=== PATIENT | female | born 1955 | race Caucasian/White ===

== ENCOUNTER 2016-08-05 09:20 | Inpatient (IN) | payer BC ==
[2016-07-28 14:56] VITALS: BMI 32.0
--- NOTE | 2016-07-28 15:21 | PAT Medication Instructions ---
Service Date July 28, 2016. 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 Instructions For Your Scheduled Surgery - Check with surgeon for instructions: Ibuprofen (Motrin), 600 MG PO TID - Hold the following medications starting 07/29/16: Anthony-3 Fatty Acids (Fish Oil), 1 TAB PO QAM Turmeric (Curcuma Longa) (Turmeric), 500 MG PO QAM - Hold the following medications 24 hours prior to surgery: [Voltaren Gel], 1 DOSE TOP BID PRN for RN - Hold the following medications the morning of surgery: Multivitamin (Multivitamin), 1 TAB PO QAM Cholecalciferol (Vitamin D3), 1 TAB PO QAM - Take the following medications the morning of surgery with a sip of water: Acetaminophen (Tylenol), 1,000 MG PO PRN (if needed) - Take the following medications as scheduled the night before surgery: Zolpidem Tartrate (Zolpidem Tartrate), 1 TAB PO HS Acetaminophen (Tylenol), 1,000 MG PO PRN (if needed) If you have any questions please call us at [phone] (Lexie Oneil PA-C ) or [phone] or [phone]
[2016-07-28 15:42] LABS: BASO % 0.5 %; BASO ABS # 0.03 K/uL (0-0.2); COMPLETE YES; EOS % 1.8 %; HEMATOCRIT 46.7 % (37-47); IG% 0.2 %; LYMPH % 24.9 %; MEAN CELL VOLUME 92.3 fL (80-100); MEAN CORPUSCULAR HEMOGLOBIN 31.4 pg (25-34); MEAN PLATELET VOLUME 10.1 fL (7.4-10.4); MONO % 7.8 %; NEUT % 64.8 %; PLATELET COUNT 216 K/uL (130-400); RED BLOOD COUNT 5.06 M/uL (4.2-5.4); WHITE BLOOD COUNT 5.62 K/uL (4.8-10.8)
[2016-07-28 15:49] LABS: URINE APPEARANCE CLEAR (CLEAR); URINE BILIRUBIN NEG (NEG); URINE COLOR YELLOW; URINE NITRITE NEG (NEG); UROBILINOGEN NEG (NEG)
[2016-07-28 15:52] LABS: MANUAL MICROSCOPIC REQUIRED? NO; REVIEW REQ? NO
[2016-07-28 15:58] LABS: PARTIAL THROMBOPLASTIN RATIO 1.1; PROTHROMBIN TIME (PATIENT) 10.5 SECONDS (9.0-12.0)
[2016-07-28 16:32] LABS: BUN/CREATININE RATIO 18.7 (10-20); CALCIUM 9.1 mg/dl (8.5-10.1); CREATININE 0.6 mg/dl (0.60-1.20); POTASSIUM 4.2 mmol/L (3.5-5.1)
[2016-07-29 07:19] LABS: ESTIMATED AVERAGE GLUCOSE 108 mg/dl; HA1C FLAG Normal (Normal)
--- NOTE | 2016-07-29 08:20 | History and Physical ---
History & Physical Date July 29, 2016. Chief Complaint Right Knee Pain History of Present Illness alex is a pleasant 61-year-old female who presents for preoperative evaluation prior to a right knee replacement. Patient states that they have been having pain in this knee for many years now, which has gradually worsened, it has now gotten to the point it is affecting her daily activities including walking, standing, going up and down steps. Patient has tried and failed conservative measures including previous cortisone injection and PO NSAIDs with no relief. At this point in time, patient has failed conservative measures and would like to proceed with a right knee replacement. Past Medical/Surgical History Past Medical History: denies history of HTN, diabetes, bleeding/clotting disorders Past Surgical History: Colecystectomy Hysterectomy Additional History Hepatic Disease: No Endocrine Disorder: No Kidney Disease: No Hypertension: No Heart Disease: No Bleeding Tendencies: No Infectious Diseases: No Allergies Coded Allergies: Penicillins (Verified Allergy, Unknown, HIVES, 07/28/16) Home Medications Scheduled Acetaminophen (Tylenol), 1,000 MG PO PRN Cholecalciferol (Vitamin D3), 1 TAB PO QAM Ibuprofen (Motrin), 600 MG PO TID Multivitamin (Multivitamin), 1 TAB PO QAM Garland-3 Fatty Acids (Fish Oil), 1 TAB PO QAM Turmeric (Curcuma Longa) (Turmeric), 500 MG PO QAM Zolpidem Tartrate (Zolpidem Tartrate), 1 TAB PO HS Scheduled PRN [Voltaren Gel], 1 DOSE TOP BID PRN for RN Physical Examination Skin: warm/dry, no rash Eyes: normal inspection, EOMI, sclerae normal ENT: normal ENT inspection, pharynx normal Head: normocephalic, atraumatic Neck: supple, no adenopathy, trachea midline Respiratory/Chest: lungs clear, normal breath sounds, no respiratory distress Cardiovascular: regular rate, rhythm, no edema, no murmur Abdomen / GI: normal bowel sounds, non tender Addiitonal Comments: Right Knee Examination: Strength LE * Strength Description - Knee: Right: strength is decreased. Knee ROM L * Active ROM - Flexion: 135 degrees, Extension: 0 degrees, Factors: normal, Description: active pain free range of motion. Passive ROM - Flexion: 135 degrees, Extension: 0 degrees, Factors: normal, Description: passive pain free range of motion. Knee ROM R * Active ROM - Flexion: 125 degrees, Extension: 5 degrees, Factors: pain, Description: active painful range of motion. Passive ROM - Flexion: 130 degrees, Extension: 3 degrees, Factors: pain, Description: passive painful range of motion. Strength LE Normal Strength Description - Hip: Right: strength is normal. Ankle/ Foot: Right: strength is normal. Knee * Inspection - Gait: limp. Alignment - Right: neutral, Left: neutral. Ecchymosis - Right: negative, Left: negative. Effusion - Right: mild, Left: normal. Swelling - Right: mild, Left: none. Flexibility - Right: normal, Left: normal. Maximum tenderness - Right: medial joint line, lateral joint line, patella, Left: normal. Patella exam - Crepitation - Right: mild, Left: normal. Patella position - Right: neutral, Left: neutral. Tilt - Right: equal, Left: normal. Joseluis's - lateral - Right: Positive. Joseluis's - medial - Right: Positive. Valgus stress - Right: Positive, trace (<2 mm). Varus stress - Right: Positive, trace (<2 mm). Knee Comments No calf tenderness Knee Normal Inspection - Atrophy - Right: Absent, Left: Absent. Skin - Right: Normal, Left: Normal. Patella exam - Apprehension - Right: Negative, Left: Negative. Q-angle - Right: Normal, Left: Normal. Jazmin's - Right: Negative, Left: Negative. Joseluis's - lateral - Left: Negative. [facility]'s - medial - Left: Negative. Posterior drawer - Right: Negative, Left: Negative. Anterior drawer - Right: Negative, Left: Negative. Valgus stress - Left: Negative. Varus stress - Left: Negative. Neurovascular LE Normal Neurovascular examination including reflexes, sensation , and pulses is within normal limits. RIGHT KNEE X-RAY Xrays reviewed of the right knee showing findings consistent with degenerative joint disease including joint space narrowing, subchondral sclerosis and peripheral osteophyte formation. no acute bony pathology, overall varus alignment. Impression: degenerative joint disease of the Right knee with no acute bony pathology noted. Diagnosis Right Knee DJD Further care discussed with patient and at this point in time has failed conservative measures and would like to proceed with a right total knee replacement. Plan on discharge will be home with outpatient physical therapy. DVT prophalaxis with TEDs, SCDs and will also place on aspirin 81 mg p.o. b.i.d. for a month postop. Patient will have follow up appointment in our office two weeks post op for staple/suture removal and re-evaluation. Patient otherwise has no other questions or concerns.
[2016-08-05] VITALS (8 sets, daily range): BP systolic 95–120; BP diastolic 63–85; PULSE 64–80; TEMP 36.4–37.1; O2SAT 93–98; Ht 167.6 cm; Wt 89.9 kg
[~2016-08-05] VITALS: Ht 167.6 cm; Wt 89.9 kg
[2016-08-05] MEDS: TRANEXAMIC ACID INJ 1,000 MG in SODIUM CHLORIDE 0.9% 100ML 100 ML IV SCH ×2 (06:30→11:30)
--- NOTE | 2016-08-05 06:56 | History & Physical Bridge Note ---
H&P Re-Evaluation Bridge Note: I have examined the patient, reviewed the History & Physical and in the interval since the performance of the History & Physical I have noted the following changes of clinical significance: No changes noted
[~2016-08-05 09:20] MED LIST: ACET-1256 PO; ACETAMINOPHEN 500 MG TAB PO SCH; ATROPINE SULFATE 0.1 MG/ML 5ML SYR IV PRN; BUPIVACAINE 0.25% 30 ML VIAL ONE; BUPIVACAINE 0.5 % 5 MG/1 ML PF 10ML VIAL ONE; CHOL1000 PO; CeleBREX 200 MG CAP PO SCH; DEXAMETHASONE 4 MG TAB PO SCH; EpHEDrine SULFATE INJ 50 MG/ML AMP IV PRN; FAMOTIDINE 20 MG TAB PO SCH; FENTANYL CITRATE INJ 50 MCG/1 ML 2 ML VIAL IV PRN; GABAPENTIN 300 MG CAP PO SCH; HYDROmorphone INJ 1 MG/ML SYR IV PRN; IBUP-1450 PO; LABETALOL HCL IV 5 MG/ML 20ML IV PRN; LACTATED RINGER'S 1000ML 1,000 ML IV SCH; LACTATED RINGER'S 1000ML IV SCH; LACTATED RINGER'S 500 ML IV SCH; MEPERIDINE HCL 25 MG/ML CARP IV PRN; METOCLOPRAMIDE HCL 10 MG TAB PO SCH; MULT-506 PO; OMEGCAP2 PO; ONDANSETRON INJ 2 MG/ML 2 ML VIAL IV PRN; ROPIVACAINE 5MG/ML 30 ML 150 MG, BUPIVACAINE/EPINEPHR 0.5% MPF 30 ML, KETOROLAC TROMETH... INFIL SCH; TURM1CAP4 PO; VANCOMYCIN INJ 1,350 MG in SODIUM CHLORIDE 0.9% 250ML 250 ML IV SCH; VOLTAREN GEL TOP; ZOLP5TAB6 PO
[2016-08-05] MEDS ORDERED: PROPOFOL IV EMULSION 10 MG/ML 20 ML VIAL IV ONE (10:21)
[2016-08-05] MEDS ORDERED: MIDAZOLAM HCL 1 MG/ML 2ML VIAL ONE (10:22)
[2016-08-05] MEDS ORDERED: FENTANYL CITRATE INJ 50 MCG/1 ML 2 ML VIAL ONE (10:22)
[2016-08-05] MEDS ORDERED: LIDOCAINE HCL 2% 2 ML VIAL (20MG/ML) ONE (10:26)
[2016-08-05] MEDS ORDERED: POVIDONE-IODINE OP SOLN 30 ML BTL ONE (11:15)
[2016-08-05] MEDS ORDERED: ORTHO JOINT ANESTHETIC ONE (11:15)
[2016-08-05] MEDS ORDERED: BACITRACIN 50000 UNIT VIAL ONE (11:17)
--- NOTE | 2016-08-05 12:42 | [facility] Post Operative Brief Note ---
Immediate Operative Summary Operative Date August 05, 2016. Pre-Operative Diagnosis Right Knee Degenerative Joint Disease Post-Operative Diagnosis Right Knee Degenerative Joint Disease Procedure(s) Performed Right Total Knee Arthroplasty Surgeon Dr. Cr [employer] Surgeon(s) Nas Degroot Estimated Blood Loss 5 ML Findings severe djd rt knee Specimens A: Right Knee bone and tissue Complication(s) None Disposition Recovery Room / PACU
[2016-08-05] MEDS ORDERED: MAGNESIUM HYDROXIDE SUSP 30 ML UDC PO PRN (12:45)
[2016-08-05] MEDS ORDERED: ONDANSETRON INJ 2 MG/ML 2 ML VIAL IV PRN (12:45)
[2016-08-05] MEDS ORDERED: ZOLPIDEM TARTRATE 5 MG TAB PO PRN (12:45)
[2016-08-05] MEDS ORDERED: METOCLOPRAMIDE HCL INJ 5 MG/ML 2 ML VIAL IV PRN (12:45)
[2016-08-05] MEDS ORDERED: ALUMINUM/MAGNESIUM/SIMETH (MAALOX MAX) 30 ML UDC PO PRN (12:45)
[2016-08-05] MEDS ORDERED: SOD PHOSPHATE/SOD BIPHOSPHATE ENEMA 132 ML BTL PR PRN (12:45)
[2016-08-05] MEDS ORDERED: DiphenhydrAMINE HCL 50 MG/ML VIAL IV PRN (12:45)
[2016-08-05] MEDS ORDERED: HYDROCODONE/ACETAMOPHEN 5/325MG TAB PO PRN (12:45)
[2016-08-05] MEDS ORDERED: BISACODYL 10 MG SUPP PR PRN (12:45)
--- NOTE | 2016-08-05 13:11 | OPERATIVE REPORT ---
DATE OF ADMISSION: 08/05/2016 PREOPERATIVE DIAGNOSIS: Severe end-stage tricompartmental degenerative joint disease, right knee. POSTOPERATIVE DIAGNOSIS: Severe end-stage tricompartmental degenerative joint disease, right knee. PROCEDURE: Right total knee arthroplasty utilizing Villafuerte \T\ Nephew Journey II patient matched total knee arthroplasty size 4 femur, 3 tibia, 11 poly, and 32 oval patella. SURGEON: Dr. Cr. POWDER CUTTING OPERATOR: Nas Bejarano PA-C who was necessary for prepping, draping, retraction, and wound closure of deep fascia, subQ and skin and was necessary for the case. . ESTIMATED BLOOD LOSS: 5 mL. COMPLICATIONS: None. TOURNIQUET TIME: 40 minutes. HISTORY OF PRESENT ILLNESS: The patient presents as a 61-year-old white female with complaints of severe end-stage DJD attributable to her right knee. She has been nonresponsive to conservative therapy and presents today for right total knee arthroplasty after failing attempts at injections, viscosupplementations, corticosteroid injections, anti-inflammatories, relative rest, and knee bracing. At the time of surgery, the above findings were noted. DESCRIPTION OF PROCEDURE: The patient was properly prepped and draped in supine position for total knee arthroplasty after identifying the appropriate surgical site. An anterior midline incision was made through the subcutaneous tissues down to the region of the extensor mechanism. A medial parapatellar incision was subsequently made. Meticulous hemostasis was obtained and performed at all times. The patella having been subluxed lateralward, medial and lateral meniscal remnants were excised. The patellar cut was then initially made and was sized to the appropriate size. After subluxing the tibia forward the appropriate meniscal fragments having been removed the distal femur was then cut first utilizing a Villafuerte and Nephew block. The distal femoral cuts and chamfer cuts were all made under direct visualization and the proximal tibial osteotomy cut was also made utilizing Villafuerte and Nephew blocks and checked with an extramedullary guide. The appropriate trial components on the femur and tibia were placed. Appropriate trial spacers were used to check flexion and extension gaps. With flexion and extension gaps being equal, the components were then subsequently after thorough irrigation and debridement lavage components were then subsequently cemented in the following order: femur, tibia and patella. Exparel was used for intraoperative anesthesia, the medial parapatellar incision was closed utilizing #1 Vicryl, subQ was closed with 2-0 Vicryl, skin was closed with skin clips. A sterile compression dressing was placed. The patient was taken to recovery room in stable condition. Due to the complex nature of the procedure, the entire surgery was performed with the operational assistance of Nas Bejarano PA-C. The certified physician assistant, under direct supervision, was involved in the actual performance of all aspects of the surgical procedure including hemostasis, tissue retraction and incision, instrument management, patient positioning, and wound closure.
[2016-08-05] MEDS ORDERED: MoRPHine SULFATE 2 MG/ML CARP IV PRN ×2 (13:30→15:45)
--- NOTE | 2016-08-05 13:54 | DIAGNOSTIC IMAGING REPORT ---
RIGHT KNEE 2 VIEWS History: Right total knee arthroplasty. Degenerative arthritis. Postop. FINDINGS: The patient is status post a right total knee arthroplasty. The hardware is intact. No fracture or dislocation. Surgical drains are in place. IMPRESSION: Right total knee arthroplasty. No evidence for hardware complication. Electronically signed by: Abundio Dash M.D. 08/05/2016 1:53 PM Dictated Date/Time: 08/05/2016 1:52 PM
[2016-08-05] MEDS ORDERED: MoRPHine SULFATE 10 MG/ML CARP/VIAL IV PRN (15:45)
--- NOTE | 2016-08-05 15:53 | Anesthesiology Progress Note ---
Anesthesia Post Op Note Date & Time August 05, 2016 at 15:53 Vital Signs Pain Intensity: 0.0 Vital Signs Past 12 Hours Date Time Temp Pulse Resp B/P Pulse Ox O2 Delivery O2 Flow Rate FiO2 08/05/16 15:15 36.6 64 18 119/85 96 Nasal Cannula 2.0 08/05/16 14:40 36.9 69 18 95/63 93 Nasal Cannula 2.0 08/05/16 14:40 93 Nasal Cannula 2.0 08/05/16 14:15 66 16 109/67 94 Nasal Cannula 2 08/05/16 14:05 36.6 63 16 102/64 97 Nasal Cannula 2 08/05/16 13:55 64 16 109/62 96 Nasal Cannula 2 08/05/16 13:45 70 16 106/62 97 Mask 6 08/05/16 13:35 68 16 105/65 97 Mask 6 08/05/16 13:26 36.6 75 16 108/66 98 Mask 6 08/05/16 09:54 36.7 67 20 98 Room Air Notes Mental Status: alert / awake / arousable, participated in evaluation Pt Amnestic to Procedure: Yes Nausea / Vomiting: adequately controlled Pain: adequately controlled Airway Patency, RR, SpO2: stable & adequate BP & HR: stable & adequate Hydration State: stable & adequate Neuraxial Anesthesia: was administered, sensory block is resolving Anesthetic Complications: no major complications apparent
[2016-08-05] MEDS: SODIUM CHLORIDE 0.9% 1000ML 1,000 ML IV SCH ×2 (16:10→22:46)
[2016-08-05] MEDS: ACETAMINOPHEN 500 MG TAB PO SCH ×2 (16:12→21:02)
[2016-08-05] MEDS ORDERED: TRANEXAMIC ACID INJ 1,000 MG in SODIUM CHLORIDE 0.9% 100ML 100 ML IV SCH (18:00)
[2016-08-05] MEDS: FERROUS GLUCONATE 324 MG TAB PO SCH (18:55)
[2016-08-05] MEDS: CLINDAMYCIN IV 600 MG in DEXTROSE 5% ADD-VANTAGE 50ML 50 ML IV SCH (18:56)
[2016-08-05] MEDS: OXYCODONE HCL 10 MG TABCR (OXYCONTIN) PO SCH (20:58)
[2016-08-05] MEDS: DOCUSATE SODIUM 100 MG CAP PO SCH (21:00)
[2016-08-05] MEDS: SENNA 8.6 MG TAB PO SCH (21:00)
[2016-08-05] MEDS: ASPIRIN 325 MG ECTAB PO SCH (21:01)
[2016-08-05] MEDS: MoRPHine SULFATE 4 MG/ML 1 ML CARP\\VIAL IV PRN (22:43)
[2016-08-06] VITALS (7 sets, daily range): BP systolic 102–120; BP diastolic 64–71; PULSE 63–78; TEMP 36.4–36.8; O2SAT 95–98
[2016-08-06] MEDS: CLINDAMYCIN IV 600 MG in DEXTROSE 5% ADD-VANTAGE 50ML 50 ML IV SCH (02:16)
[2016-08-06] MEDS: SODIUM CHLORIDE 0.9% 1000ML 1,000 ML IV SCH ×2 (02:17→09:12)
[2016-08-06] MEDS: ACETAMINOPHEN 500 MG TAB PO SCH ×3 (05:49→21:16)
[2016-08-06 06:16] LABS: HEMATOCRIT 37.4 % (37-47); MEAN CELL VOLUME 91.4 fL (80-100); MEAN CORPUSCULAR HEMOGLOBIN 31.3 pg (25-34); MEAN CORPUSCULAR HGB CONC 34.2 g/dl (32-36); MEAN PLATELET VOLUME 10.2 fL (7.4-10.4); PLATELET COUNT 210 K/uL (130-400); RED BLOOD COUNT 4.09 M/uL (4.2-5.4); WHITE BLOOD COUNT 13.01 K/uL (4.8-10.8)
[2016-08-06] MEDS: OXYCODONE HCL IR 5 MG TAB (IMMEDIATE RELEASE) PO PRN ×3 (07:46→16:06)
--- NOTE | 2016-08-06 08:10 | Anesthesiology Progress Note ---
Anesthesia Post Op Note Date & Time August 06, 2016 at 08:10 Vital Signs Pain Intensity: 5.0 Vital Signs Past 12 Hours Date Time Temp Pulse Resp B/P Pulse Ox O2 Delivery O2 Flow Rate FiO2 08/06/16 08:08 Room Air 08/06/16 07:36 36.6 63 16 102/64 95 Room Air 08/06/16 03:10 36.7 67 16 105/66 95 Room Air 08/06/16 00:05 36.7 66 16 112/70 95 Room Air 08/05/16 23:20 Room Air 08/05/16 20:40 36.4 66 18 110/72 96 Nasal Cannula 2.0 Notes Mental Status: alert / awake / arousable, participated in evaluation Pt Amnestic to Procedure: Yes Nausea / Vomiting: adequately controlled Pain: adequately controlled Airway Patency, RR, SpO2: stable & adequate BP & HR: stable & adequate Hydration State: stable & adequate Neuraxial Anesthesia: sensory block resolved Anesthetic Complications: no major complications apparent
[2016-08-06] MEDS: ASPIRIN 325 MG ECTAB PO SCH ×2 (09:10→21:14)
[2016-08-06] MEDS: FERROUS GLUCONATE 324 MG TAB PO SCH ×3 (09:10→18:27)
[2016-08-06] MEDS: OXYCODONE HCL 10 MG TABCR (OXYCONTIN) PO SCH ×2 (09:10→21:14)
[2016-08-06] MEDS: PANTOprazole SOD 40 MG TAB PO SCH (09:10)
[2016-08-06] MEDS: MULTIVITAMIN TAB PO SCH (09:11)
[2016-08-06] MEDS: DOCUSATE SODIUM 100 MG CAP PO SCH ×2 (09:11→21:14)
--- NOTE | 2016-08-06 10:36 | Orthopedic Progress Note ---
Orthopedic Progress Note Date of Service August 06, 2016. Subjective Post OP Day: 1 Reports: feeling well Objective N/V intact (Mild footdrop present), dressing C/D/I (hemovac in place) Date Time Temp Pulse Resp B/P Pulse Ox O2 Delivery O2 Flow Rate FiO2 08/06/16 08:08 95 Room Air 08/06/16 08:00 Room Air 08/06/16 07:36 36.6 63 16 102/64 95 Room Air 08/06/16 03:10 36.7 67 16 105/66 95 Room Air 08/06/16 00:05 36.7 66 16 112/70 95 Room Air 08/05/16 23:20 Room Air 08/05/16 20:40 36.4 66 18 110/72 96 Nasal Cannula 2.0 08/05/16 17:45 37.1 80 18 120/77 94 Nasal Cannula 2.0 08/05/16 16:45 36.6 65 18 107/68 95 Nasal Cannula 2.0 08/05/16 16:00 96 Nasal Cannula 2.0 08/05/16 15:45 36.4 65 16 111/72 96 Nasal Cannula 2.0 08/05/16 15:15 36.6 64 18 119/85 96 Nasal Cannula 2.0 08/05/16 14:40 36.9 69 18 95/63 93 Nasal Cannula 2.0 08/05/16 14:40 93 Nasal Cannula 2.0 08/05/16 14:15 66 16 109/67 94 Nasal Cannula 2 08/05/16 14:05 36.6 63 16 102/64 97 Nasal Cannula 2 08/05/16 13:55 64 16 109/62 96 Nasal Cannula 2 08/05/16 13:45 70 16 106/62 97 Mask 6 08/05/16 13:35 68 16 105/65 97 Mask 6 08/05/16 13:26 36.6 75 16 108/66 98 Mask 6 Laboratory Results 24 Hours: Test 08/06/16 05:11 Hematocrit 37.4 % Hemoglobin 12.8 g/dL Assessment & Plan Assessment: 61 yo female stable POD #1 s/p right TKA Plan: 1. Med management 2. DVT prophylaxis- ASA, TEDs, SCDs 3. PT/OT 4. D/C planning- home w/ OPPT
--- NOTE | 2016-08-06 16:09 | Discharge Instructions ---
Discharge Instructions Date of Service August 06, 2016. Admission Reason for Admission: Right Knee Osteoarthritis Discharge Discharge Diagnosis / Problem: Right Knee Djd Discharge Goals Goal(s): Decrease discomfort, Improve function Activity Recommendations Activity Limitations: per Instructions/Follow-up section Weightbearing Status: Right weightbearing (as tolerated) . Instructions / Follow-Up Instructions / Follow-Up ACTIVITY RECOMMENDATIONS: SELF CARE INSTRUCTIONS AFTER TOTAL KNEE REPLACEMENT A. You may need to continue a physical therapy program after discharge from the hospital. There are several options available to you. Your doctor will assist you in selecting the best one for you. 1. An out-patient facility 2 to 3 times a week for therapy or home therapy. 2. Continue working on all exercises taught to you in the hospital. Your goals should be to increase bending of your knee to 90 degrees and beyond and to fully straighten your knee. B. You may progress at your own pace from walking with a walker or crutches to a cane; then to no assistive devices. C. Make walking a part of your daily routine. Be up as much as comfortable with rest periods throughout the day. Rest with leg elevation is very important. Use the ice wrap frequently for the first 3-4 weeks. D. There are no restrictions on activities. You may ride in a car, shop, participate in sticker hand and all social activities. E. Wear the long elastic stockings (CABRERA hose) 20 hours a day for 2 weeks after surgery. They can be removed several times a day for laundering and for a bath. F. You may shower, no tub baths until cleared by your doctor. SPECIAL CARE INSTRUCTIONS: VERY IMPORTANT TO READ AND REVIEW A. There are a few signs you need to watch for after you are home. Call [facility] if you notice any of the followin. Increased severe knee pain. Some pain is expected especially when you exercise. 2. Increased swelling in your leg or knee; pain or swelling of the calf muscle in either lower leg. 3. Any fluid drainage from the incision. 4. Shortness of breath or chest pain. B. Please call [facility] at if you have any concerns or questions about your operation or recovery. The doctor or his nurse will return your call promptly. C. You must take antibiotics before dental work, bladder, bowel or other surgery. Your doctor will provide you with a permanent care to carry describing this precaution. IMPORTANT: * REMEMBER TO TAKE ASPIRIN, 81 MG, TWICE DAILY FOR 4 WEEKS UNLESS OTHERWISE DIRECTED. THIS IS YOUR BLOOD THINNER. * HIGH RISK PATIENTS MAY BE PRESCRIBED A STRONGER BLOOD THINNER. THIS WILL BE PROVIDED AT DISCHARGE. * CALL IF INCREASED PAIN, REDNESS, DRAINAGE OR FEVER GREATER THAT 101. * WEAR CABRERA HOSE 20 HOURS PER DAY FOR 2 WEEKS. * DERMABOND Prineo- This is a mesh tape dressing that is covered with glue. It should remain in place until the incision is properly healed, usually 10-14 days. This dressing is designed to naturally slough off. You may trim the excess mesh tape as it peels off. Incision may be briefly wet in a shower. Dry immediately by blotting with a clean, dry towel. Do not bath or swim until instructed by your doctor. Do not scratch, rub, or pick at the dressing. Do not apply any topical ointments or lotions until dressing is completely removed and/or instructed by your doctor. There may be a small piece of suture material at one end of your incision. Do not pull or trim this. If it is bothersome or catching on clothing, you may cover it with a band-aid. . FOLLOW UP VISIT: If appointment is not already scheduled: Please call [facility] to make a follow-up appointment for 2 weeks after your surgery at . Current Hospital Diet Patient's current hospital diet: Regular Diet Discharge Diet Recommended Diet: Regular Diet Procedures Procedures Performed: Right Total Knee Arthroplasty Pending Studies Studies pending at discharge: no Laboratory Results Hemoglobin A1c Test 07/28/16 15:32 Range/Units Estimated Average Glucose 108 mg/dl Hemoglobin A1c 5.4 4.5-5.6 % Medical Emergencies . Who to Call and When: Medical Emergencies: If at any time you feel your situation is an emergency, please call 911 immediately. . Non-Emergent Contact Non-Emergency issues call your: Surgeon Call Non-Emergent contact if: temperature is above 101.5, your pain is not controlled, your pain is worsening, wound has increased drainage, wound has increased redness . "Provider Documentation" section prepared by Nas Bejarano. . VTE Core Measure Inpt VTE Proph given/why not?: Other Anticoagulation, T.E.D. Stockings, SCD's [place] Drug Monitoring Program Search Results: patient reviewed within database, no issues identified
[2016-08-06] MEDS: MoRPHine SULFATE 4 MG/ML 1 ML CARP\\VIAL IV PRN (18:30)
[2016-08-06] MEDS: SENNA 8.6 MG TAB PO SCH (21:44)
[2016-08-07] MEDS: OXYCODONE HCL IR 5 MG TAB (IMMEDIATE RELEASE) PO PRN ×2 (03:58→10:06)
[2016-08-07] MEDS: ACETAMINOPHEN 500 MG TAB PO SCH (05:54)
[2016-08-07] MEDS: MoRPHine SULFATE 4 MG/ML 1 ML CARP\\VIAL IV PRN (05:54)
[2016-08-07 06:42] VITALS: BP 147/82; PULSE 66; TEMP 36.8; O2SAT 93
[2016-08-07] MEDS: OXYCODONE HCL 10 MG TABCR (OXYCONTIN) PO SCH (07:26)
[2016-08-07] MEDS: PANTOprazole SOD 40 MG TAB PO SCH (07:26)
[2016-08-07] MEDS: MULTIVITAMIN TAB PO SCH (07:26)
[2016-08-07] MEDS: FERROUS GLUCONATE 324 MG TAB PO SCH (07:26)
[2016-08-07] MEDS: DOCUSATE SODIUM 100 MG CAP PO SCH (07:47)
[2016-08-07] MEDS: ASPIRIN 325 MG ECTAB PO SCH (07:47)
--- NOTE | 2016-08-07 08:23 | Orthopedic Progress Note ---
Orthopedic Progress Note Date of Service August 07, 2016. Subjective Post OP Day: 2 Reports: complaints (mild pain in the knee this AM), feeling well Additional Notes: Pt having more pain today but tolerating well. Hopeful for going home today. Objective calves soft nontender, N/V intact, dressing C/D/I, A&O x3, toes mobile Date Time Temp Pulse Resp B/P Pulse Ox O2 Delivery O2 Flow Rate FiO2 08/07/16 07:15 Room Air 08/07/16 06:42 36.8 66 16 147/82 93 Room Air 08/06/16 23:32 36.8 78 16 120/70 95 Room Air 08/06/16 19:20 Room Air 08/06/16 15:25 36.7 73 18 115/71 98 Room Air 08/06/16 12:23 36.4 75 16 104/64 97 Room Air 08/06/16 12:15 Room Air Assessment & Plan Assessment: 61 yo female stable POD #2 s/p right TKA Plan: Progressing in PT Plan for dc to home today if her pain control is maintained Inhouse Planning Pain Management: Oxycontin, Morphine, PO Tylenol, Oxy IR DVT Prophylaxis: Shiva SCDs, ASA Discharge Planning Discharge Planning: home with oppt Pain Management: Oxycontin, PO Tylenol, Oxy IR DVT Prophylaxis: TEDs, ASA Therapy: Physical Therapy
[2016-08-07] MEDS ORDERED: SNK PO (08:29)
[2016-08-07] MEDS ORDERED: ASPEC325 PO (08:29)
[2016-08-07] MEDS ORDERED: OXYSR10 PO (08:29)
[2016-08-07] MEDS ORDERED: ACET-1256 PO (08:29)
[2016-08-07] MEDS ORDERED: RXC5 PO (08:29)
[2016-08-07] MEDS ORDERED: ASPEC81 PO (08:35)
--- NOTE | 2016-08-07 08:48 | DISCHARGE SUMMARY ---
DATE OF DISCHARGE: 08/07/2016 DISCHARGE DIAGNOSIS: Degenerative joint disease, right knee. SECONDARY DISEASE: History of cholelithiasis in the past. CONSULTS: None. COMPLICATIONS: None. PROCEDURES: Right total knee arthroplasty performed by Dr. Cr on 08/05/2016. BRIEF HISTORY: As dictated in history and physical. HOSPITAL SUMMARY: The patient was admitted on the above-noted date and had the above-noted surgery performed which she tolerated well. On her first postoperative day, she was feeling well and had no complaints. Dressings were clean, dry and intact. Neurovascular showed a mild footdrop present, but otherwise she was remaining stable. Vital signs were stable. She was afebrile. Hemoglobin was 12.8 and she was started on physical therapy protocol and continued on DVT prophylaxis with plans to watch the footdrop. This was likely secondary to intraoperative injection during the procedure. By her second postoperative day, she was remaining stable. Hemoglobin was 12.8 and she was stating that she was having some more pain today compared to yesterday with the block starting to wear off but was still hoping to go home today. She had some tingling on top of her right foot, but she had good dorsiflexion and plantar flexion and the mild footdrop was wearing off, which was likely due to injection. Calves were soft and nontender. Dressings were clean and dry. Toes were mobile. She was progressing with physical therapy and plans were for her to be discharged to home on 08/07/2016. For further review, please see chart. LABORATORY AND X-RAY DATA: As per chart. DISCHARGE INSTRUCTIONS: The patient was discharged to home in satisfactory condition on 08/07/2016. DIET: Regular. ACTIVITY: Follow TK instruction sheets and special care instructions as noted and follow up with Dr. Cr in 2 weeks. The patient to call for appointment if one has not been made for you. DISCHARGE MEDICATIONS: Acetaminophen 1000 mg p.o. t.i.d. for 30 days, aspirin 81 mg p.o. b.i.d. for 30 days, OxyContin 10 mg p.o. q. 12 hours, oxycodone 5-10 mg p.o. q. 4 hours p.r.n., Senna 17.2 mg p.o. at bedtime. Resume taking home meds as listed and stop taking ibuprofen.
[2016-08-07 08:58] VITALS: BP 147/82; PULSE 66; TEMP 36.8; O2SAT 93
== END 2016-08-07 10:48 | disposition home or self-care (01) | DRG 470 ==
LOC: ENRESERVTM → ENRESERVDT → C.ACU 09:20 → C.3E 09:27
PROVIDERS: ADMIT Orthopaedic Surgery; ATTEND Orthopaedic Surgery
PROC: 0SRC0J9 Replacement of Right Knee Joint with Synthetic Substitute, Cemented, Open Approach (ICD-10-PCS; principal; 2016-08-05 11:30)
DX: M17.11 Unilateral primary osteoarthritis, right knee (principal)